=== PATIENT | female | born 1970 | race Asian ===

== ENCOUNTER 2019-01-17 12:08 | Outpatient (CLI) | payer OTHER ==
--- NOTE | 2019-01-18 12:04 | MRI Report ---
Reason: RT FINGER PAIN Procedure Date: 01/17/2019 Accession Number: [id number] / [id number] Procedure: MRI - Hand RT W/O CPT Code: Final Report FULL RESULT: EXAM: RIGHT HAND MRI WITHOUT CONTRAST EXAM DATE: 01/17/2019 01:20 PM. CLINICAL HISTORY: Right finger pain. Metacarpophalangeal joint pain for the past 2 weeks and no history of trauma. COMPARISON: None. TECHNIQUE: Following sequences are obtained of the right hand and fingers: 1. Coronal STIR fingers. 2. Sagittal STIR second, third and fourth digits. 4. Coronal T1-weighted second, third and fourth digits. 5. Axial T1-weighted and axial T2-weighted fat saturation first through fifth digits. FINDINGS: Bones: No fractures or subluxations. No marrow edema. No bone lesions. Negative for marginal erosion to suggest inflammatory arthritis. Cartilage and Joints: The articular cartilage is unremarkable. Negative for increased joint fluid. Ligaments: The visualized collateral ligaments are intact. Tendons: Increased tendon sheath fluid flexor digitorum tendons third digit. Musculature: No edema or fatty atrophy. Other: No joint effusions. The subcutaneous tissues are unremarkable. IMPRESSION: 1. Diffuse third digit flexor digitorum tenosynovitis. Evaluate for rheumatoid arthritis. 2. Negative for periarticular marginal erosion or synovitis to suggest inflammatory arthritis. 3. Focal tenosynovitis flexor pollicis longus tendon at the proximal phalanx right thumb (image 3 series 601). [facility]
== END 2019-01-17 12:09 | disposition home or self-care (01) ==
LOC: DI 12:08
PROVIDERS: ATTEND Orthopaedic Surgery
DX: M65.841 Other synovitis and tenosynovitis, right hand (principal)

== ENCOUNTER 2019-10-19 09:18 | Outpatient (CLI) | payer OTHER ==
--- NOTE | 2019-10-19 11:00 | MRI Report ---
PROCEDURE: Knee LT W/O INDICATIONS: PAIN IN LEFT KNEE TECHNIQUE: Noncontrast sagittal PD fast spin echo and T2 fast spin echo with fat saturation, sagittal 3-D gradie nt sequence with fat saturation; coronal T1 spin echo and PD fast spin echo with fat saturation, and axial PD fast spin echo with fat saturation through the knee. COMPARISON: None. FINDINGS: Image quality: Excellent. Menisci: Medial meniscal tear involving the body, with abnormal signal extending to the undersurface. Lateral meniscus intact. Cruciate ligaments: Anterior cruciate ligament appears intact. Posterior cruciate ligament appears intact. Medial structures: The medial collateral ligament demonstrates medial bowing, mild thickening and adjacent edema which c ould be reactive to medial meniscal pathology, versus low grade sprain. The semimembranosus tendon appears intact. Visualized portions of the pes anserinus tendons appear normal. No abnormal bursal fluid. Lateral structures: Lateral collateral ligament appears grossly intact. Biceps femoris tendon appears intact. Iliotibial band within normal limits. Popliteus tendon within normal limits. Anterior structures: Mild proximal patellar tendinopathy. Quadriceps tendon appears intact. Medial and lateral patellofemoral ligaments appear grossly intact. Patellar alignment is normal. Hoffa's fat pad unremarkable. Bones and cartilage: No bone marrow contusions or fractures. Scattered subchondral sclerosis and spurring. Within the medial compartment, mild diffuse partial thickness loss of the femoral and tibial cartilag e primarily involving the central portions. Within the lateral compartment, no focal cartilage defect Within the patellofemoral compartment, mild diffuse partial thickness articular cartilage loss Joint space: No joint effusion. No Irvin?s cyst. No specific evidence of loose body identified. IMPRESSION: Medial meniscal tear involving the body as detailed above. Proximal patellar tendinopathy which appears chronic. Reviewed by: Huey Hussein MD on 10/19/2019 10:59 AM PDT Approved by: Huey Hussein MD on 10/19/2019 10:59 AM PDT Station ID: [id number]
== END 2019-10-19 09:19 | disposition home or self-care (01) ==
LOC: DI 09:18
PROVIDERS: ATTEND General Practice
DX: S83.242A Other tear of medial meniscus, current injury, left knee, initial encounter (principal); M67.864 Other specified disorders of tendon, left knee

== ENCOUNTER 2019-12-07 06:22 | Day surgery (SDC) | payer OTHER ==
[2019-12-07] MEDS ORDERED: CEFAZOLIN SODIUM IN 0.9 % NACL 2 GM/100 ML BAG IV ONE (06:35)
[2019-12-07] MEDS ORDERED: LACTATED RINGERS 1,000 ML IV ONE ×2 (07:06→08:36)
[2019-12-07] MEDS ORDERED: LIDOCAINE-MPF 2% 5 ML VIAL IM ONE (07:20)
[2019-12-07] MEDS ORDERED: DEXAMETHASONE 4 MG/ML VIAL IVP ONE (07:20)
[2019-12-07] MEDS ORDERED: PROPOFOL 200 MG/20 ML VIAL IVP ONE (07:20)
[2019-12-07] MEDS ORDERED: ONDANSETRON 4 MG/2 ML VIAL IVP ONE (07:20)
[2019-12-07] MEDS ORDERED: fentaNYL 100 MCG/2 ML VIAL IVP ONE (07:20)
[2019-12-07] MEDS ORDERED: EPINEPHrine 1 MG/ML AMP ONE (07:22)
--- NOTE | 2019-12-07 07:25 | ANESTHESIA ---
Pre-Anesthesia VS, & Labs - Diagnosis Left knee pain - Procedure left knee arthroscopy Vital Signs: Temp Pulse Resp BP Pulse Ox 36 C L 82 18 166/93 H 98 12/07/19 06:30 12/07/19 06:30 12/07/19 06:30 12/07/19 06:30 12/07/19 06:30 Height: 5 ft 2 in Weight (kg): 80.74 kg Body Mass Index: 32.5 BMI Classification: Obese - NPO >8 hours - Is Patient ?: No - Lab Results Current Lab Results: Laboratory Tests 12/07/19 07:02: POC Whole Bld Glucose 112 H Home Medications and Allergies Home Medications: Ambulatory Orders Aspirin [Aspirin EC] 81 mg PO 12/03/19 Atorvastatin [Lipitor] 40 mg 12/03/19 Cyanocobalamin (Vitamin B-12) [Vitamin B-12 (1000 mcg sublingual)] 12/03/19 Diltiazem HCl [Diltiazem ER] 180 mg PO 12/03/19 Estrogens, Conjugated [Premarin] 0.625 mg PO 12/03/19 Hydrochlorothiazide 12.5 mg PO 12/03/19 Loratadine [Claritin] 10 mg PO 12/03/19 Losartan Potassium [Cozaar] 100 mg PO 12/03/19 Multivitamin 1 each PO 12/03/19 SITagliptin [Januvia] 100 mg PO DAILY 12/03/19 SUMAtriptan succinate [Sumatriptan Succinate] 50 mg PO PRN 12/03/19 Topiramate [Topamax] 50 mg PO BID 12/03/19 metFORMIN [Glucophage] 500 mg PO BIDWM 12/03/19 Aspirin [Aspirin EC] 81 mg PO 12/03/19 Atorvastatin [Lipitor] 40 mg 12/03/19 Cyanocobalamin (Vitamin B-12) [Vitamin B-12 (1000 mcg sublingual)] 12/03/19 Diltiazem HCl [Diltiazem ER] 180 mg PO 12/03/19 Estrogens, Conjugated [Premarin] 0.625 mg PO 12/03/19 Hydrochlorothiazide 12.5 mg PO 12/03/19 Loratadine [Claritin] 10 mg PO 12/03/19 Losartan Potassium [Cozaar] 100 mg PO 12/03/19 Multivitamin 1 each PO 12/03/19 SITagliptin [Januvia] 100 mg PO DAILY 12/03/19 SUMAtriptan succinate [Sumatriptan Succinate] 50 mg PO PRN 12/03/19 Topiramate [Topamax] 50 mg PO BID 12/03/19 metFORMIN [Glucophage] 500 mg PO BIDWM 12/03/19 Allergies/Adverse Reactions: Allergies Allergy/AdvReac Type Severity Reaction Status Date / Time paroxetine Allergy Emesis Verified 12/03/19 14:21 acetaminophen [From [place]] AdvReac Intermediate Unknown Verified 12/03/19 14:21 hydrocodone [From [place]] AdvReac Intermediate Unknown Verified 12/03/19 14:21 Anes History & Medical History - Anesthetic History Anesthesia Complications: reports: No previous complications - Medical History Cardiovascular: reports: Hypertension, High cholesterol Pulmonary: reports: None Gastrointestinal: reports: None Urinary: reports: None Musculoskeletal: reports: Other Endocrine/Autoimmune: reports: Type 2 diabetes Skin: reports: None - Surgical History Gynecologic: Hysterectomy Orthopedic: Other Exam General: Alert Dental: WNL Mouth Openin Fingerbreadth Mallampati classification: II Thyromental Distance: 4-6 cm Respiratory: Lungs clear, Normal breath sounds, No respiratory distress, No accessory muscle use Cardiovascular: Regular rate, Normal S1, Normal S2, No murmurs Plan Anesthesia Type: General Consent for Procedure(s) Verified and Reviewed: Yes Code Status: Attempt Resuscitation ASA classification: 2-Mild systemic disease Is this case an emergency?: No
[2019-12-07] MEDS ORDERED: BUPIVACAINE 0.25% PF 30 ML VIAL ONE (07:28)
[2019-12-07] MEDS ORDERED: ePHEDrine 50 MG/ML VIAL IVP PRN (07:49)
[2019-12-07] MEDS ORDERED: HYDROmorphone 0.5 MG/0.5 ML SYRINGE IVP PRN (07:49)
[2019-12-07] MEDS ORDERED: NALOXONE 0.4 MG/ML VIAL IVP PRN (07:49)
[2019-12-07] MEDS ORDERED: fentaNYL 100 MCG/2 ML VIAL IVP PRN (07:49)
[2019-12-07] MEDS ORDERED: ONDANSETRON 4 MG/2 ML VIAL IVP PRN ×2 (07:49→08:44)
[2019-12-07] MEDS ORDERED: METOCLOPRAMIDE 10 MG/2 ML VIAL IVP PRN (07:49)
[2019-12-07] MEDS ORDERED: ATROPINE ABBOJECT 1 MG/10 ML SYRINGE IVP PRN (07:49)
[2019-12-07] MEDS ORDERED: LACTATED RINGERS 1,000 ML IV SCH (08:00)
[2019-12-07] MEDS ORDERED: BUPIVACAINE 0.25% PF 30 ML VIAL SUBQ ONE (08:02)
[2019-12-07] MEDS ORDERED: EPINEPHrine 1 MG/ML AMP IR ONE (08:02)
[2019-12-07] MEDS ORDERED: ACETAMINOPHEN 1,000 MG/100 ML 100 ML IV ONE (08:43)
[2019-12-07] MEDS ORDERED: KETOROLAC 30 MG/ML VIAL IVP ONE (08:43)
[2019-12-07] MEDS ORDERED: oxyCODONE 5 MG TABLET PO PRN (08:44)
--- NOTE | 2019-12-07 08:52 | IMMEDIATE POSTOPERATIVE NOTE ---
Immediate Postoperative Note - Procedure Note Procedure Date: 12/07/19 Pre-Op Diagnosis: Left knee medial meniscal tear Procedure: Left knee arthroscopy, medial meniscal debridment, plica resection, medial femoral condyle shaving chondroplasty Post-Op Diagnosis: Left knee medial meniscal tear, medial plica, medial and PF arthritis Primary Surgeon: ERUM KRISHNA Anesthesia Type: General LMA Findings: Torn medial meniscus, prominent medial plica, medial and PF compartment OA > lateral compartment OA. Complications: No complications Estimated Blood Loss (in cc): 5 Drains, Catheters, Devices: None Specimens and Cultures: None Plan of Care: ASA 325mg x 3 weeks for DVT ppx Dressing down in 3 days Discharge home when criteria met.
[2019-12-07] MEDS ORDERED: KETOROLAC 30 MG/ML VIAL ONE (08:57)
[2019-12-07] MEDS ORDERED: ONDANSETRON 4 MG/2 ML VIAL ONE (09:23)
[2019-12-07] MEDS ORDERED: oxyCODONE 5 MG TABLET ONE (09:42)
--- NOTE | 2019-12-07 09:58 | ANESTHESIA POST OP EVALUATION ---
Anesthesia Post Eval - Post Anesthesia Eval Vitals: Last Vital Signs Temp 36.2 C L 12/07/19 09:11 Pulse 89 12/07/19 09:11 Resp 14 12/07/19 09:11 BP 117/77 12/07/19 09:11 Pulse Ox 97 12/07/19 09:11 CV Function Including HR & BP: positive: Stable Pain Control: positive: Satisfactory Nausea & Vomiting: positive: Negative Mental Status: positive: Baseline Respiratory Status: Airway Patent Hydration Status: Satisfactory (awake and alert) Anesthesia Complications: positive: None
[2019-12-07 10:50] VITALS: BP 135/68
--- NOTE | 2019-12-07 11:46 | OPERATIVE REPORT ---
Operative Report - General Procedure Date: 12/07/19 - Procedure Note Primary Surgeon: ERUM KRISHNA Anesthesia Technique: General LMA Estimated Blood Loss (mL): 5 - Other Other Information/Narrative: Date of Procedure: December 07, 2019 Planned Procedure: Left knee arthroscopy medial meniscal debridement Pre-op diagnosis: Left knee medial meniscal tear Procedure performed: Left knee arthroscopy, medial meniscus debridement, medial plica resection, medial femoral condyle chondroplasty Post-op diagnosis: Left knee medial meniscal tear, medial femoral condyle chondromalacia, patellofemoral chondromalacia, prominent medial plica Primary Surgeon: ERUM KRISHNA Secondary Surgeon: Ari Anesthesia: General LMA EBL: 5 ml Tourniquet: 34 minutes, left thigh at 250mmHg. Arthroscopic findings left knee: 1. Patella: Significant widespread inferior patellar chondromalacia and cartilage erosion 2. Trochlea: Significant diffuse chondromalacia, grade 3 3. Medial Compartment: Complex tear of the body and posterior horn of the medial meniscus. This was debrided with a combination of meniscal biters and the sucker shaver to a stable rim. The medial meniscal root was intact. There is a large full-thickness chondral defect of the medial femoral condyle inferiorly and posteriorly. There were some undermined flaps that were debrided to a stable rim. There was a prominent medial plica that was causing some abrasion where on the medial femoral condyle. This was debrided back to the level of the capsule. 4. Lateral Compartment: Lateral meniscal root was intact. The lateral meniscus was intact. Femoral condyle with minimal wear. Some grade 1-2 changes over the lateral tibial plateau. 5. ACL and PCL: The ACL was intact with some fraying anteromedially. The PCL was intact. COMPLICATIONS: none IMPLANTS: None Indications for surgery: 49-year-old female who sustained injury to her left knee approximately 1 year ago while hiking [employer] in [place] [employer]. Prior to this she had minimal antecedent knee pain. She is undergone therapy without significant benefit. MRI and exam were consistent with medial joint line pain and a complex tear of the medial meniscal body and posterior horn. She also had radiographic evidence of osteoarthritis. We discussed knee arthroscopy is more reliable in relieving the mechanical symptoms and pain associated with meniscal tears then with o steoarthritis. She expressed understanding. The risks, benefits, and alternatives were discussed. Risks include pain, bleeding, infection, damage to nearby structures and cartilage, lack of symptom relief, need for further surgery, DVT, PE, stroke, and . Written consent was obtained. Procedure Details: The patient was met in the pre-operative hold area. Persistence of symptoms and consent was verified. The patient verified the surgical site as the left knee. The operative knee was initialed per our standard protocol using surgical marker. The patient then met with anesthesia and was brought back to the operating room. The patient was placed supine on the operating table. A general anesthetic was administered and LMA was placed. A well-padded tourniquet was placed on the left thigh. Following tourniquet placement, the left lower extremity was then prepped and draped in the usual sterile fashion. A surgical timeout was performed, verifying the correct patient, the correct procedure and surgical site. We confirmed that perioperative antibiotics had been administered. Everyone agreed to proceed. The Escmarch was used to exsanguinate the left lower extremity and the tourniquet was raised. An 11 blade scalpel was used to make an anterolateral arthroscopic portal, the anteromedial was created using needle localization and direct visualization. The arthroscope was introduced into the knee and a diagnostic arthroscopy was performed with the above-stated findings. A limited debridement of the anterior fat pad was performed to improve visualization. Arthroscopic biters and the sucker shaver were used to debride the torn meniscal tissue and debride the meniscus back to a stable rim. The arthroscopic probe was used to ensure that the remaining meniscal tissue was stable. The arthroscopic sucker shaver was used to debride the prominent medial plica back to the level of the joint capsule. A limited chondroplasty using meniscal biters and the sucker shaver of the medial femoral condyle was performed. The arthroscopic instruments were then removed from the knee. The portals were closed with 3-0 Monocryl. 0.25% Marcaine plain was injected into the periarticular soft tissues. The incisions were dressed with Xeroform gauze, 4x4 gauze, an ABD and a gently compressive Rayray wrap was placed on the leg. The tourniquet was lowered. The surgical drapes were removed. The patient was awoken from anesthesia, transferred to the hospital bed, and taken to the PACU for recovery in good condition. Postoperative plan: 1. Discharge home from the same day surgery facility once the patient has met discharge criteria. 2. Advance weightbearing as tolerated, range of motion as tolerated, and wean from crutches as tolerated as gait normalizes. 3. Full strength aspirin for 21 days for DVT prophylaxis 4. Return to clinic in 5-7 days for wound check. Will start formal PT at that time. 5. Allow advancement of activities as tolerated with full clearance for all activities anticipated in 6-8 weeks postoperatively.
== END 2019-12-07 06:23 | disposition home or self-care (01) ==
LOC: SDS 06:22
PROVIDERS: ATTEND Orthopaedic Surgery
PROC: 0SBD4ZZ Excision of Left Knee Joint, Percutaneous Endoscopic Approach (ICD-10-PCS; principal; 2019-12-07 07:30)
DX: S83.232A Complex tear of medial meniscus, current injury, left knee, initial encounter (principal); M94.262 Chondromalacia, left knee; M67.52 Plica syndrome, left knee; E66.9 Obesity, unspecified; Z68.32 Body mass index [BMI] 32.0-32.9, adult; I10 Essential (primary) hypertension; E11.9 Type 2 diabetes mellitus without complications; Z87.891 Personal history of nicotine dependence